=== PATIENT | female | born 1930 | race Caucasian/White ===

== ENCOUNTER 2020-01-22 11:36 | Inpatient (IN) | payer MEDICARE ==
[~2020-01-22] VITALS: Ht 172.7 cm; Wt 53.8 kg
--- NOTE | ~2020-01-22 | CON ---
[address] [address] CONSULTATION Name: GABE MANNING Zachary Room: [address] IN M.R.#: [id number] Admission: 01/22/20 Attend Phys: Jayme Montague Discharge: Date of : [birth year] Report #: [id number] THIS REPORT FOR: //name// cc: Lynne Farrar Maggie M. DO THIS REPORT FOR: //name// CC: Jayme Vaughan DATE OF SERVICE: 01/25/2020 HISTORY: The patient's chart reviewed. No new complaints. PHYSICIAL EXAMINATION: VITAL SIGNS: Blood pressure 173/65, heart rate is 67, temperature 97.5, respirations 18. HEENT: Without change. LABORATORY DATA: White count 4.0, hemoglobin 11.8, hematocrit 34.6, MCV 82.3, platelets 79. TSH 1.49. Iron 51, TIBC 308. Ferritin 72, folate 36.4. Vitamin B12 of 583. ASSESSMENT AND PLAN: 1. Anemia, mild. Workup is nondiagnostic, but not suggestive of iron deficiency, B12 deficiency or folate deficiency. Anemia is very mild. Continue to monitor. 2. Thrombocytopenia, unclear etiology. Apparently, the patient had a bone marrow biopsy, we will try to obtain the records. By: [id number] 134MD bennett Wesley
[2020-01-22 11:49] VITALS: BP 211/96
[2020-01-22] MEDS ORDERED: TOPROL XL50 MG PO (11:55)
[2020-01-22] MEDS ORDERED: COUMADIN 1MG TAB1 M1 PO (11:55)
[2020-01-22] MEDS ORDERED: ZESTRIL10 MG PO (11:55)
[2020-01-22] MEDS ORDERED: COUMADIN 2.5MG2.5 M1 PO (11:55)
[2020-01-22] MEDS ORDERED: CAL-MAG COMPLE1 EACH PO (11:56)
[2020-01-22] MEDS ORDERED: CENTRUM ADULTS1 EACH PO (11:56)
[2020-01-22] MEDS ORDERED: D3-200050 MCG PO (11:56)
[2020-01-22] MEDS ORDERED: FISH OIL 1,0001 EAC9 PO (11:56)
[2020-01-22 12:18] LABS: ABSOLUTE LYMPHOCYTES 0.5 thou/uL (0.8-5.3); ABSOLUTE MONOCYTES 0.4 thou/uL (0.0-1.2); ABSOLUTE NEUTROPHILS 1.7 thou/uL (1.6-8.1); BASOPHILS 0.9 %; EOSINOPHILS 1.5 %; HEMATOCRIT 35.9 % (37.0-47.0); HEMOGLOBIN 12.2 gm/dL (12.0-15.0); LYMPHOCYTES 19.8 %; MCH 28.1 pg (26.0-34.0); MCV 82.7 fL (80.0-100.0); MONOCYTES 13.6 %; MPV 9.4 fl. (7.2-11.1); NUCLEATED RBCS 0 /100WBC; POLYS 64.2 %; RBC 4.34 mil/uL (4.20-5.00); WBC 2.7 thou/uL (4.0-11.0)
[2020-01-22 12:28] LABS: APTT 59.2 Seconds (25.0-31.3); INR 2.9
[2020-01-22 13:10] LABS: PLATELET ESTIMATE DECREASED
[2020-01-22 13:11] LABS: ANISOCYTOSIS Occasional
[2020-01-22 13:12] LABS: PLATELET COUNT* 78 thou/uL (150-400)
[2020-01-22 13:16] LABS: CALCIUM 10.3 mg/dL (8.5-10.1); CREATININE 1.4 mg/dL (0.6-1.3); POTASSIUM 3.8 mmol/L (3.5-5.1)
[2020-01-22 13:22] LABS: ALBUMIN 3.7 g/dL (3.4-5.0); TOTAL BILIRUBIN 0.9 mg/dL (<0.1-1.0); TOTAL PROTEIN 6.4 g/dL (6.4-8.2)
[2020-01-22 15:53] VITALS: BP 157/57
--- NOTE | 2020-01-22 17:33 | EKG ---
[place] [address] ELECTROCARDIOGRAM REPORT Name: GABE MANNING Room: [address] ADM IN M.R.#: [id number] Admission: 01/22/20 Attend Phys: Jayme matson Sa Discharge: Date of : [birth year] Date of Service: 01/22/20 1149 Report #: [id number] THIS REPORT FOR: //name// [facility] ED Test Date: 2020-01-22 Test Time: 11:49:10 Pat Name: GABE MANNING Department: Room: [facility] Gender: F Tonal Regulator: REBECCA : 1930 Requested By: Tam Hilton Order Number: [id number] MD: Thai Luna Measurements Intervals [place] Rate: 95 P: ME: QRS: 94 QRSD: 141 T: 0 QT: 386 QTc: 486 Interpretive Statements Atrial fibrillation Ventricular bigeminy LBBB Baseline wander in lead(s) V5,V6 No previous ECG available for comparison Electronically Signed On 01-22-2020 17:31:41 CDT by Thai Luna [email or web address] <ELECTRONICALLY SIGNED> By: Thai Luna MD, [facility] 01/22/20 1731 1149 1149 Thai Luna MD, [facility] /EPI
[2020-01-22 20:00] VITALS: BP 152/56
--- NOTE | 2020-01-22 20:17 | NUR ---
I ASSUMED CARE OF THE PATIENT AN ADMISSION FROM THE ED AT 1600. VITALS ARE STABLE AND SHE IS ADMITTED INTO THE COVID UNIT. BED IS IN THE LOW LOCKED POSITION AND CALL LIGHT IS IN REACH. PATIENT NEEDS ARE MET AND HOURLY ROUNDING IS COMPLETED. PAIN IS DENIED. SHE IS ALERT AND ORIENTED X4 AND IS STEADY ON HER FEET. SHE HAS A FLUID RESTRICTION AND VOIDED 3 TIMES. SHE ONLY HAD 300 CC IN. COVID IS PENDING. SHE IS ON THE [employer].
--- NOTE | 2020-01-22 21:43 | NUR ---
PT ALERT ORIENTED. PT STEADY ON FEET. BED ALARM ON. PT REMINDED TO CALL NURSE WHEN GETTING OOB AT NIGHT. STATISTICIAN MATHEMATICAL SOCKS PROVIDED. CALL LIGHT AND PERSONAL ITEMS WITHIN REACH. PT SHOWED HOW TO USE CALL LIGHT. PT CONCERNED ABOUT WARFARIN HS. PT/INR 2.9. DR HA. ALSO NS AT 100ML/HR. PT ON 1500 ML FR. BMP 14,539. LACTIC AND CREATINE WNL. ORDER TO DC IVF AND HOLD WARFARIN TONIGHT. PT OFFERED MELATONIN BUT REFUSED SAYING, I HAVE NO PROBLEM SLEEPING. TELEMETRY SHOWS AFIB WITH BIGEM VENTRICULAR ECTOPY BBB. WCTM
[2020-01-22 22:45] VITALS: BP 184/52
--- NOTE | 2020-01-22 23:17 | NUR ---
PT HR DROPPING DOWN TO 30s-40s WHILE APPEARING TO BE SLEEPING. BP 184-52. PT IS ON METOPROLOL AND HAS TAKEN THIS AM. DR ARROYO NOTIFIED. NO NEW ORDERS AT THIS TIME. WELL CONTINUE TO MONITOR AND ASSESS.
[2020-01-23] VITALS (7 sets, daily range): BP systolic 141–172; BP diastolic 47–89
--- NOTE | 2020-01-23 04:23 | NUR ---
PT REMAINS ORIENTED THROUGH OUT SHIFT. TELEMETRY SHOWS AFIB BBB OCCASIONAL BIGEMINAL ECTOPY WITH RANDOM ECTOPY. HR DROPPING DOWN INTO THE 30S AT TIMES. BP COMING DOWN LAST ONE 142/47. DID OKAY WITH NURSE DRAW FOR LABS. USED LIGHT TOURNIQUET TIE. WCTM
[2020-01-23 04:33] LABS: ABSOLUTE EOSINOPHILS 0.1 thou/uL (0.0-0.7); ABSOLUTE LYMPHOCYTES 0.5 thou/uL (0.8-5.3); ABSOLUTE MONOCYTES 0.3 thou/uL (0.0-1.2); ABSOLUTE NEUTROPHILS 1.4 thou/uL (1.6-8.1); WBC 2.4 thou/uL (4.0-11.0)
[2020-01-23 04:36] LABS: BASOPHILS 0.9 %; HEMATOCRIT 29.7 % (37.0-47.0); HEMOGLOBIN 10.3 gm/dL (12.0-15.0); INR 3.5; LYMPHOCYTES 22.6 %; MCH 28.4 pg (26.0-34.0); MCHC 34.6 g/dL (28.0-37.0); MONOCYTES 13.6 %; MPV 9.7 fl. (7.2-11.1); NUCLEATED RBCS 0 /100WBC; PLATELET COUNT* 64 thou/uL (150-400); POLYS 58.9 %; PROTIME 34.3 Seconds (9.20-11.50); RBC 3.63 mil/uL (4.20-5.00); RDW-CV 16.2 % (10.5-14.5)
[2020-01-23 04:51] LABS: CALCIUM 9.6 mg/dL (8.5-10.1); CREATININE 1.5 mg/dL (0.6-1.3); MAGNESIUM 1.7 mg/dL (1.8-2.4); POTASSIUM 3.4 mmol/L (3.5-5.1); TOTAL BILIRUBIN 0.7 mg/dL (<0.1-1.0); TOTAL PROTEIN 5.4 g/dL (6.4-8.2)
--- NOTE | 2020-01-23 17:18 | NUR ---
PT RESTED IN BED AND TOLERATED PO WELL. UP TO BATHROOM SEVERAL TIME WITH ASSISTANCE. HELD COUMADIN TONIGHT R/T ELEVATED INR. PT PROGRESSING TOWARDS GOALS. WILL CONTINUE TO ASSESS.
[2020-01-24 04:08] LABS: ABSOLUTE EOSINOPHILS 0.1 thou/uL (0.0-0.7); ABSOLUTE LYMPHOCYTES 0.6 thou/uL (0.8-5.3); ABSOLUTE MONOCYTES 0.4 thou/uL (0.0-1.2); ABSOLUTE NEUTROPHILS 1.3 thou/uL (1.6-8.1); BASOPHILS 1.2 %; EOSINOPHILS 5.7 %; HEMATOCRIT 32.9 % (37.0-47.0); HEMOGLOBIN 11.2 gm/dL (12.0-15.0); LYMPHOCYTES 25.8 %; MCH 27.8 pg (26.0-34.0); MCHC 34.1 g/dL (28.0-37.0); MCV 81.5 fL (80.0-100.0); MONOCYTES 15.2 %; MPV 9.2 fl. (7.2-11.1); NUCLEATED RBCS 0 /100WBC; PLATELET COUNT* 74 thou/uL (150-400); POLYS 52.1 %; RBC 4.03 mil/uL (4.20-5.00); WBC 2.4 thou/uL (4.0-11.0)
[2020-01-24 04:24] LABS: INR 2.5; PROTIME 24.4 Seconds (9.20-11.50)
[2020-01-24 04:30] LABS: ALBUMIN 3.2 g/dL (3.4-5.0); CALCIUM 9.5 mg/dL (8.5-10.1); CREATININE 1.3 mg/dL (0.6-1.3); MAGNESIUM 1.7 mg/dL (1.8-2.4); PHOSPHORUS* 3.5 mg/dL (2.5-4.9); POTASSIUM 4.3 mmol/L (3.5-5.1)
[2020-01-24 06:00] VITALS: BP 165/50
[2020-01-24 07:56] VITALS: BP 152/60
--- NOTE | 2020-01-24 11:33 | NUR ---
REPORT CALLED TO MJ WARD.
[2020-01-24 12:45] VITALS: BP 181/68
--- NOTE | 2020-01-24 16:11 | NUR ---
PATINET RESTING IN BED IN ROOM. UP WITH STANDBY ASSISTANCE. VSS. SR ON TELEMTRY MONITOR. HOURLY ROUNDING COMPLETED FOR PATINET SAFETY.
--- NOTE | 2020-01-24 16:14 | NUR ---
PATIENT RESTING IN BED. UP AD LIBIN ROOM. VSS, AOX4, ROOM AIR. HOURLY ROUNDING COMPETD FOR PATIENT SAFETY. POTENTIAL DISCHARGE TO SELF CARE AT HOME TOMORROW.
[2020-01-24 16:50] VITALS: BP 187/74
[2020-01-24 19:59] VITALS: BP 173/69
[2020-01-25 00:19] VITALS: BP 169/69
[2020-01-25 04:00] VITALS: BP 149/52
[2020-01-25 04:42] LABS: HEMATOCRIT 34.6 % (37.0-47.0); HEMOGLOBIN 11.8 gm/dL (12.0-15.0); MCH 28.1 pg (26.0-34.0); MCHC 34.2 g/dL (28.0-37.0); MCV 82.3 fL (80.0-100.0); MPV 9.7 fl. (7.2-11.1); RBC 4.2 mil/uL (4.20-5.00); RDW-CV 16.1 % (10.5-14.5)
[2020-01-25 04:52] LABS: INR 1.5; PROTIME 15.4 Seconds (9.20-11.50)
[2020-01-25 05:07] LABS: ALBUMIN 3.3 g/dL (3.4-5.0); CALCIUM 9.6 mg/dL (8.5-10.1); CREATININE 1.3 mg/dL (0.6-1.3); PHOSPHORUS* 3.3 mg/dL (2.5-4.9); POTASSIUM 3.5 mmol/L (3.5-5.1)
--- NOTE | 2020-01-25 05:56 | NUR ---
RECEIVED REPORT AND ASSUMED CARE OF PATIENT AT 1900. ALL ROUNDINGS COMPLETED, ALL NEEDS MET, FULL ASSESSMENT COMPLETED CHARTED. PT CONTINUES WITH CHRONIC AFIB, HEART RATE DROPPED INTERMITTENTLY THROUGHOUT SHIFT FROM 30s-60s. PHYSICIAN NOTIFIED, ORDERS RECEIVED AND IMPLEMENTED. CARDIOLOGY CONSULT SCHEDULED FOR THIS AM. HEART RATE CONTINUES TO GO BETWEEN 30s AND 60s. CALL LIGHT AND PERSONAL ITEMS IN REACH.
[2020-01-25 07:38] VITALS: BP 137/65
[2020-01-25 11:30] VITALS: BP 173/65
[2020-01-25 16:00] VITALS: BP 172/72
--- NOTE | 2020-01-25 16:39 | NUR ---
PATINET RESTING IN BED. UP AD MIHIR IN ROOM. AOX2 BUT FORGETTFUL AND CONFUSED AT TIMES. VSS ANDPAITNET IN NO APPARENT DISTRESS AT THIS TIME. HOULRY ROUNDING COMPLETED FOR PATIENT SAFETY.
[2020-01-25 20:00] VITALS: BP 173/77
[2020-01-26] VITALS: BP 161/50
[2020-01-26 04:00] VITALS: BP 150/72
[2020-01-26 04:59] LABS: HEMATOCRIT 32.3 % (37.0-47.0); HEMOGLOBIN 11.1 gm/dL (12.0-15.0); MCH 27.8 pg (26.0-34.0); MCHC 34.3 g/dL (28.0-37.0); MCV 81.3 fL (80.0-100.0); MPV 9.9 fl. (7.2-11.1); RBC 3.97 mil/uL (4.20-5.00); WBC 2.7 thou/uL (4.0-11.0)
[2020-01-26 05:19] LABS: ALBUMIN 3.1 g/dL (3.4-5.0); CALCIUM 9.7 mg/dL (8.5-10.1); CREATININE 1.2 mg/dL (0.6-1.3); PHOSPHORUS* 3.8 mg/dL (2.5-4.9); POTASSIUM 3.6 mmol/L (3.5-5.1)
[2020-01-26 05:21] LABS: INR 1.4; PROTIME 14.2 Seconds (9.20-11.50)
--- NOTE | 2020-01-26 07:21 | NUR ---
ASSUMED CARE OF PT AFTER REPORT AT 1930. PT A&OX4. FORGETFUL. VSS. PHYSICAL ASSESSMENT COMPLETED AND CHARTED. PT ON RA. PT TRACING AFIB/BBB ON TELE. HR 30'S-60'S. PT DENIES ANY PAIN OR DISCOMFORT. MAINTAINED ON DROPLET PREACUTION ORDERED. CALL LIGHT WITHIN REACH.
[2020-01-26 08:00] VITALS: BP 167/49
[2020-01-26 08:13] LABS: HEMOGLOBIN 11.4 g/dL (11.1-15.9)
--- NOTE | 2020-01-26 09:32 | CON ---
[address] [address] CONSULTATION Name: GABE MANNING Room: [address] IN M.R.#: [id number] Admission: 01/22/20 Attend Phys: Jayme Montague Discharge: Date of : [birth year] Report #: [id number] THIS REPORT FOR: //name// cc: Lynne Farrar Maggie M. DO ~ THIS REPORT FOR: //name// CC: Jayme Farrar DO REASON FOR CONSULTATION: Pancytopenia. HISTORY OF PRESENT ILLNESS: The patient is an 89-year-old female who lives with her granddaughters and their 2 dogs, who is not a very good historian, who thinks she has been short of breath for several days or weeks, but gets very irritated when pressed for details. It sounds like review of systems is mostly negative, but I think she is almost trying to answer the questions to move on and get the exam over with. The patient's at best, I can tell, denied any headache, any swallowing troubles, any bleeding troubles, any diarrhea, any constipation, any new medications, any exposure to any sick people. She thinks her weight has been stable. She is not aware of any lymph node enlargement. The patient does remember that she saw Dr. Adin Nava about 5 or 7 years ago, had a bone marrow biopsy for low platelets, though she cannot tell me what level they were, whether any therapy was given, or what the diagnosis was. She does not know if she has had anemia or low white count during that time. The patient declined an exam today, she became somewhat almost agitated, so I did not press the issue. PAST MEDICAL HISTORY: Notable for some form of thrombocytopenia several years ago with a resultant bone marrow. Also, history of atrial fibrillation. Current right lower lobe pneumonia. FAMILY HISTORY: Per the chart, notable for hypertension. SOCIAL HISTORY: She is a never smoker. No alcohol use. MEDICATIONS: Medications as an outpatient include warfarin, metoprolol, lisinopril, fish oil, calcium, magnesium, and vitamin D. Current medications at this time in the hospital include fish oil 1000 daily, metoprolol 50 daily, cholecalciferol 1000 units daily, vitamin C 1000 units daily, warfarin at varying doses, melatonin 10 mg at bedtime, guaifenesin 1200 mg b.i.d., and IV fluids. Electrolyte replacement protocols. She had received ceftriaxone and I believe she is still receiving it. Also, [place] [address] CONSULTATION Name: GABE MANNING Zachary Room: [address] IN M.R.#: [id number] Admission: 01/22/20 Attend Phys: Jayme Montague Discharge: Date of : [birth year] Report #: [id number] sulfate and azithromycin. PHYSICAL EXAMINATION: GENERAL: The patient appears her stated age. Her mood was pleasant, but then became somewhat short. VITAL SIGNS: Height is 5 feet 8 inches or 172.7 cm, weight 118.4 pounds or 53.8 kg, blood pressure is 152/60, respirations 19, pulse 60, and temperature 97.3. She is on 1 L of oxygen. HEENT: Face appears to be symmetrical. Her mucosa of her tongue and oral mucosa appeared to be normal pink color. NECK: No neck masses or JVD noted on exam. CHEST: She is breathing comfortably. I did not notice have any rhonchi, wheezes, or rales. ABDOMEN: The patient appears to have a fairly scaphoid abdomen. SKIN: Appears to be normal with several ecchymoses, probably related to blood draws. NEUROLOGIC: Speech and thought pattern appear to be normal. She is moving arms and legs. EXTREMITIES: I did not notice any swelling of her extremities. Skin is dry. LABORATORY DATA: Results notable for BUN of 24 and creatinine of 1.3. Liver function tests including AST, ALT were normal. Alkaline phosphatase was at the upper range of 104. Total bilirubin was normal at 0.7. LDH slightly elevated at 271. TSH, iron, ferritin, folate, and B12 are pending that I ordered on admit. The aPTT was elevated at 59.2 at which time, her INR was 2.9 and her protime was 29. White count was 2.7 on admit and 2.4 for the last 2 days. Hemoglobin was 12.2, now 11.2 today. MCV 81.5, RDW of 16, and platelet count 78 on admission and 74 today. MPV was 92. Differential appears fairly normal, though ANC was slightly low at 1.3, was 1.7 on admit. No NRBCs noted. Path review ordered and is pending. Sed rate was 5. C-reactive protein less than 2. COVID is not detected. ASSESSMENT AND PLAN: 1. Cytopenias unclear if old or new. We will ask for old records from patient's PCP. We will also go ahead and check B12, folate, thyroid peripheral smear review. Note, the patient appears to have history which sounds like may be chronic ITP, but not clear. Given the lack of B symptoms such as weight loss or sweats, doubt that this is lymphoma, but will need to be wary about this. We will await test results and outside lab review. 2. Right lower lobe pneumonia. Continues antibiotics. 3. Atrial fibrillation, rate controlled well[place] [address] CONSULTATION Name: GABE MANNING Zachary Room: [address] IN M.R.#: [id number] Admission: 01/22/20 Attend Phys: Jayme matson [place] Discharge: Date of : 12/12/[birth year] Report #: [id number] 4. Slightly prolonged aPTT, may be related to Coumadin. We will need to watch to make sure this is not lupus anticoagulant. We will follow with you. <ELECTRONICALLY SIGNED> By: Perico Lewis MD 01/26/20 0932 1119 [id number] Lewis MD /nt
--- NOTE | 2020-01-26 12:34 | NUR ---
Nutrition: Pt seen for low BMI. Wt recorded as 118#, but pt stated she always weighs 123# at her dr's and she hasn't lost any wt recently. BMI would be WNL 18.7. She stated she is eating well. Disch orders noted. She had been admitted for PNA. Labs, meds, PMHx noted. Low risk.
[2020-01-26] MEDS ORDERED: LEVAQUIN 750 M750 MG PO (12:39)
[2020-01-26 12:42] VITALS: BP 156/51
--- NOTE | 2020-01-26 13:29 | NUR ---
ASSUMED PT CARE REPORT RECEIVED FROM NURSE PT IS AOX4 ON RA. ROCEPHIN GIVEN ORDERED ALONG WITH OTHER MOEDS. PT DENIES PAIN. VSS. HEART RATE RUNS BETWWEN 30 AND 90 BEATS PER MINUTE. 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 CARDIOLOGY CONSULTED FOR LOW HEART RATE. EVEN MONITOR ORDERED AND WAS PLACED ON PT AT 1200 BEFORE DISCHARGE. INSTRUCTIONS WERE GIVEN TO PT PER CARDIAC NURSE REGARDING THE USE OF THE EVEN MONITOR PRIOR TO DISCHARGE. NO COMPLAINT FROM PT. IV LINE REMOVED. HEART MONITOR RETRIEVED. DC INSTRUTION GIVEN TO PT. PT LEFT FLOOR AT 1320 ACCOMPANIED BY NURSING STAFF ON WHEELCHAIR. HER DAUGHTER PICKED HER UP
== END 2020-01-26 13:20 | disposition home or self-care (01) | DRG 193 ==
LOC: M.ERS 11:36 → M.TBA-ER 13:45 → M.ORTHSURG 13:45 → M.2W 01-24 12:31
PROVIDERS: Emergency Medicine Emergency Medical Services; Internal Medicine Hematology & Oncology; ADMIT Family Medicine
DX: J15.9 Unspecified bacterial pneumonia (principal); R65.11 Systemic inflammatory response syndrome (SIRS) of non-infectious origin with acute organ dysfunction; N17.9 Acute kidney failure, unspecified; D68.59 Other primary thrombophilia; I48.20 Chronic atrial fibrillation, unspecified; I10 Essential (primary) hypertension; D69.6 Thrombocytopenia, unspecified; D64.9 Anemia, unspecified; Z79.01 Long term (current) use of anticoagulants; Z79.899 Other long term (current) drug therapy; Z88.2 Allergy status to sulfonamides; Z82.49 Family history of ischemic heart disease and other diseases of the circulatory system; Z03.818 Encounter for observation for suspected exposure to other biological agents ruled out

== ENCOUNTER → 2020-02-01 | Outpatient (CLI) | payer MEDICARE ==
[~2020-02-01] MED LIST: CAL-MAG COMPLE1 EACH PO; CENTRUM ADULTS1 EACH PO; COUMADIN 1MG TAB1 M1 PO; COUMADIN 2.5MG2.5 M1 PO; D3-200050 MCG PO; FISH OIL 1,0001 EAC9 PO; LEVAQUIN 750 M750 MG PO; TOPROL XL50 MG PO; ZESTRIL10 MG PO
== END ==
LOC: M.ULTRA 15:00
DX: M79.89 Other specified soft tissue disorders (principal)

== ENCOUNTER → 2020-02-11 | Outpatient (CLI) | payer MEDICARE ==
[~2020-02-11] MED LIST changes: +B12INJ SUBQ; +CARVEDILOL3.125 MG PO; +VITAMIN B-121000 MC2 SUBLING
== END ==
LOC: M.CT 12:40
PROVIDERS: ATTEND Family Medicine
DX: J90 Pleural effusion, not elsewhere classified (principal); J18.1 Lobar pneumonia, unspecified organism; I25.10 Atherosclerotic heart disease of native coronary artery without angina pectoris; J98.11 Atelectasis; R91.8 Other nonspecific abnormal finding of lung field; M47.814 Spondylosis without myelopathy or radiculopathy, thoracic region; J98.4 Other disorders of lung